=== PATIENT | female | born 1945 | race Two or more races ===

== ENCOUNTER 2024-11-25 12:14 | Emergency (ER) | payer OTHER, SELFPAY ==
[2024-11-25] VITALS (8 sets, daily range): BP systolic 105–131; BP diastolic 57–87; PULSE 60–90; RESP 13–97; TEMP 37; O2SAT 61–98
--- NOTE | 2024-11-25 12:15 | PC.NURSE ---
[facility] ARRIVAL EVALUATED PT. PT TAKEN STRAIGHT TO CT FOR STROKE ALERT
--- NOTE | 2024-11-25 12:15 | PD.EDNEURO ---
Neuro Symptoms Deficit-RME/HPI General Chief Complaint: Neuro Symptoms/Deficit Stated Complaint: STROKE Time Seen by Provider: 11/25/24 12:27 Arrival date/time: 11/25/24 12:14 RME / HPI RME / HPI Narrative: DR. JOLLY MAIN ED EVALUATION: 79 year old female with past medical history significant for atrial fibrillation [facility]umping [facility] in [facility] at [facility]130[facility]. Last known well at 10am when she arrived at [facility] with her son. Patient is supposed to be on Eliquis for atrial fibrillation, however she ran out a month ago and did not refill. History obtained from EMS and patient son. EMS noted right-sided weakness and right-sided facial droop. Related Data Previous Rx's ?Medication ?Instructions ?Recorded albuterol sulfate 90 mcg/actuation 2 puff inhalation QID PRN 02/26/20 aerosol inhaler shortness of breath or wheezing #18 grams azithromycin 250 mg tablet See Rx Instructions PO .COMPLEX #6 02/26/20 tabs Allergies Allergy/AdvReac Type Severity Reaction Status Date / Time No Known Drug Allergies Allergy Verified 07/30/22 12:20 Review of Systems Review of Systems Systems Reviewed: All systems reviewed, normal except as documented Past Medical History Past Medical History CARDIAC: Positive Cardiac Disorders and Hypertension MUSCULOSKELETAL: Positive Musculoskeletal Disorders and Arthritis Surgical History SURGICAL: Positive Section (x2) Social History SMOKING STATUS: Never smoker SUBSTANCE USE: does not use ALCOHOL: Never ED Exam Narrative Physical exam: GENERAL APPEARANCE: alert and oriented x 4, well-developed, well-nourished VITALS: All vitals were reviewed and the pulse ox is 94% on room air, which is normal according to my interpretation. HEENT: Normocephalic, atraumatic; pupils equal, round, reactive to light; EOMI; mucous membranes pink, moist; oropharynx clear NECK: Supple LUNGS: CTABL; no wheezes, no rales, no rhonchi HEART: Regular rate, regular rhythm; normal S1, S2; no murmurs ABDOMEN: non distended; normal BS; soft, no tenderness, no guarding, no rebound; no masses, no organomegaly, no hernia BACK: no CVA tenderness EXTREMITIES: atraumatic; no edema NEUROLOGIC: awake; alert and oriented x4; right sided facial droop, right sided weakness PSYCHIATRIC: appropriate mood and affect SKIN: warm, dry, normal color; no rashes Course Quality Measures none Orders Category Date Time Status Bedside Blood Glucose NOW Care 11/25/24 12:23 Completed Oil Mixer NOW Care 11/25/24 12:23 Completed Continuous Pulse Oximetry NOW Care 11/25/24 12:23 Completed EKG (ED ONLY) *Do not use* NOW Care 11/25/24 12:23 Completed In and Out Catheter NEEDED Care 11/25/24 12:23 Completed Insert IV NOW Care 11/25/24 12:23 Completed NIH Stroke Scale Q4HX8,QSHIFT Care 11/25/24 12:58 Completed NIH Stroke Scale now Care 11/25/24 12:23 Completed NPO NOW Care 11/25/24 12:23 Completed Neuro Check Q15M Care 11/25/24 12:58 Completed Nurse Swallow Screen x1 Care 11/25/24 12:23 Completed Vital Signs Q15M Care 11/25/24 12:58 Completed Consult to Neurology / Tele-Neurology Routine Cons 11/25/24 12:23 Active Referral - Contact Acid Plant Operator Helper Stat Cons 11/25/24 13:[address] angio stroke protocol Stat Exams 11/25/24 12:[address] stroke protocol Stat Exams 11/25/24 12:20 Completed EKG (ED Only) Stat Exams 11/25/24 12:23 Draft Alcohol, Blood Medical Stat Lab 11/25/24 12:40 Completed CBC Stat Lab 11/25/24 12:40 Completed Comprehensive Metabolic Panel Stat Lab 11/25/24 12:40 Completed Magnesium Stat Lab 11/25/24 12:40 Completed Partial Thromboplastin Time Stat Lab 11/25/24 12:40 Completed Prothrombin Time with INR Stat Lab 11/25/24 12:40 Completed Troponin I Stat Lab 11/25/24 12:40 Completed Labetalol IV [Trandate IV] Med 11/25/24 12:43 Discontinued 10 mg IVP PRNMRX1 PRN Labetalol IV [Trandate IV] Med 11/25/24 12:43 Discontinued 10 mg IVP PRNMRX1 PRN Nicardipine/Ns 20Mg Ivpb [Cardene Ivpb] Med 11/25/24 12:43 Discontinued 20 mg in 200 ml IV 5 mg/hr Ondansetron Inj [Zofran Inj] Med 11/25/24 12:23 Discontinued 4 mg IV Q4HR PRN Tenecteplase Inj [TNKase Inj] Med 11/25/24 12:43 Discontinued 17.6 mg IV X1 ONE Oxygen Delivery NOW RT 11/25/24 12:23 Completed Vital Signs Vital signs: Vital Signs Respiratory Rate 13 11/25/24 12:58 Blood Pressure 127/76 11/25/24 12:58 Pulse Oximetry (%) 94 L 11/25/24 12:58 Oxygen Delivery Method Room Air 11/25/24 12:58 Neuro Symptoms / Deficit MDM Narrative MDM Narrative:: Salma Mahoney am scribing for and in the presence of Dr. Jolly. Patient data External records reviewed:: EMS form Clinical information provided by:: patient and EMS Social determinants that could affect healthcare access:: none Patient has the following chronic illnesses:: hypertension, arthritis, and x2 section How is presenting disease/condition affected by chronic disease/condition?: exacerbated by Evaluation data The following diagnostics were reviewed and interpreted by me:: lab results, radiology exam(s) and EKG tracing(s) (vEKG#1: EKG at 1306 hours. Interpreted by me: sinus rhythm, rate 61, right bundle branch block) Lab and/or radiology exams considered but not ordered:: none Interpretation Summary: Procedure(s): CT stroke protocol Accession Number(s): [id number] cc: Matthew Bonner MD; Miryam Jolly MD~ Examination: CT brain head without contrast. 2-D sagittal coronal reconstructions Date and time of exam:November 25, 2024 at 1219 hours Comparison July 30, 2022 INDICATIONS: Stroke alert, onset focal neurologic deficit, onset right-sided body weakness beginning one hour ago CTDI: vol (mGy):45.7 DLP: (mGycm):941 Technique: Multiple CT axial sections of the brain have been obtained, 5 mm slice thickness. Contrast has not been administered. 2-D sagittal, coronal reconstructions have been obtained Low dose protocols were performed. One or more of the following dose reduction techniques were used; automated exposure control, adjustment of the mA and/or KV according to patient size, use of iterative reconstruction technique. Findings: No significant ventricular enlargement. Intra-axial or extra-axial hemorrhage density is not seen. No mass effect or midline shift Basal cisterns are not remarkable. Fourth ventricle is midline. Cranial vault intact. Retention cyst right sphenoid air cells Impression: Negative for acute hemorrhage, mass effect or midline shift Dictated By: Matthew Bonner MD Procedure(s): CT angio stroke protocol Accession Number(s): [id number] cc: Matthew Bonner MD; Miryam Jolly MD~ Examination: CTA carotids with intravenous contrast CTA brain, head with intravenous contrast. 2-D sagittal, coronal reconstructions. 3-D reconstructions. Exam date and time: November 25, 2024 at 1224 hours INDICATIONS: Stroke alert today, onset focal neurologic deficit, right-sided body weakness beginning one hour ago CTDI: vol (mGy) 34.9 DLP: (mGycm) 429 Technique: Multiple CTA axial brain, head carotid images post intravenous contrast injection 75 cc, Isovue-370. 2-D sagittal, coronal reconstructions. 3-D reconstructions, 3-D post processing including vascular maximum intensity projection images. Low dose protocols were performed. One or more of the following dose reduction techniques were used; automated exposure control, adjustment of the mA and/or KV according to patient size, use of iterative reconstruction technique. Findings: Multiple left thyroid lobe calcifications and 8mm left thyroid nodule No common carotid carotid bifurcation or internal carotid artery significant stenoses Dominant left vertebral artery with no critical stenoses Attenuated basilar artery Juxtasellar supraclinoid portions internal carotid arteries intact Occlusion M1 segment left middle cerebral artery, no filling of left middle cerebral artery branches Critical stenosis left posterior cerebral artery junction P1 and P2 segments IMPRESSION: No significant neck arterial stenoses Occlusion M1 segment left middle cerebral artery with no significant filling of middle cerebral artery trifurcation vessels on the left Critical stenosis left posterior cerebral artery junction P1 and P2 segments Dictated By: Matthew Bonner MD Medications / Prescriptions Medications or Prescriptions considered but not ordered:: none Medication administrations:: Medication Administration History Discontinued Medications Nicardipine/Sodium Chloride (Cardene Ivpb) 20 mg in 200 mls @ 50 mls/hr IV .Q4H PRN; Protocol PRN Reason: Per Nicardipine Stroke Protocol Stop: 12/25/24 12:42 Labetalol HCl (Labetalol Inj 5 Mg/Ml Vial 20 Ml) 10 mg IVP PRNMRX1 PRN PRN Reason: SBP > 185 mmHg and/or DBP > 110 Labetalol HCl (Labetalol Inj 5 Mg/Ml Vial 20 Ml) 10 mg IVP PRNMRX1 PRN PRN Reason: SBP > 180 mmHg or DBP > 105 Ondansetron HCl (Ondansetron Inj 2 Mg/Ml Inj 2 Ml) 4 mg IV Q4HR PRN PRN Reason: NAUSEA OR VOMITING Stop: 12/25/24 12:22 Tenecteplase (Tenecteplase Inj 50 Mg Vial) 17.6 mg 0.25 mg/kg (17.6 mg) IV X1 ONE Stop: 11/25/24 12:44 Last Admin: 11/25/24 12:53 Dose: 17.6 mg Documented By: TM Co-signed By: km see above Consultations Consultation(s) initiated? (list below): Yes Consultation #1 (Physician, Specialty, Details): Discussed test HPI, PMHx, lab, radiology results and/or management with Dr. Kang Brantley from [facility]. Will accept the patient for transfer. Time: 13:40 Consultation #2 (Physician, Specialty, Details): Discussed test HPI, PMHx, lab, radiology results and/or management with Dr. He, neurologist from [facility]. Following recommendations and they plan for a thrombectomy. Time: 14:02 Diagnosis Neuro Differential Diagnosis: subarachnoid hemorrhage, cerebrovascular accident and transient cerebral ischemia Most likely diagnosis given after review of the tests above:: CVA Occlusion of middle cerebral artery Admission Indicated Admission indicated?: not indicated Explain why admission is indicated or not indicated:: Patient needs higher level of care and will be transferred. Admission Request Was there a request for admission?: No Disposition Plan Disposition Plan: Transfer Critical Care Time Critical Care Time Critical Care Time: Yes Total Critical Care Time (min.): 45 Attestation: The high probability of sudden, clinically significant deterioration in the patient?s condition required the highest level of my preparedness to intervene urgently. The services I provided to this patient were to treat and/or prevent clinically significant deterioration. Services included the following: chart data review, reviewing nursing notes and/or old charts, documentation time, sr solutions consultant collaboration regarding findings and treatment options, medication orders and management, direct patient care, vital sign assessments and ordering, interpreting and reviewing diagnostic studies and lab tests. Aggregate critical care time includes only time during which I was engaged in work directly related to the patient?s care, as described above, whether at bedside or elsewhere in the Emergency Department. It did not include time spent performing other reported procedures or the services of residents, students, nurses or physician assistants. Discharge Plan Plan Patient Disposition: [facility] Pt Being Transferred to: [facility] Service Needed for Transfer: Interventional Radiology Prescriptions/Referrals Prescriptions/Med Rec: No Action albuterol sulfate 90 mcg/actuation HFA aerosol inhaler 2 puff IH QID PRN (Reason: shortness of breath or wheezing) Qty: 18 0RF azithromycin 250 mg tablet See Rx Instructions .ROUTE .COMPLEX Qty: 6 0RF Rx Instructions: take 500 mg today (day 1), then 250 mg for 4 days (days 2-5) Problem List Clinical Impression: Cerebrovascular accident, Occlusion of middle cerebral artery Patient/Caregiver Discharge Instructions Print Language: New Zealander Stand Alone Forms: Lashawn Award Info., Patient Portal Info Letter
--- NOTE | 2024-11-25 12:20 | XR_ITS ---
Examination: CTA carotids with intravenous contrast CTA brain, head with intravenous contrast. 2-D sagittal, coronal reconstructions. 3-D reconstructions. Exam date and time: November 25, 2024 at 1224 hours INDICATIONS: Stroke alert today, onset focal neurologic deficit, right-sided body weakness beginning one hour ago CTDI: vol (mGy) 34.9 DLP: (mGycm) 429 Technique: Multiple CTA axial brain, head carotid images post intravenous contrast injection 75 cc, Isovue-370. 2-D sagittal, coronal reconstructions. 3-D reconstructions, 3-D post processing including vascular maximum intensity projection images. Low dose protocols were performed. One or more of the following dose reduction techniques were used; automated exposure control, adjustment of the mA and/or KV according to patient size, use of iterative reconstruction technique. Findings: Multiple left thyroid lobe calcifications and 8mm left thyroid nodule No common carotid carotid bifurcation or internal carotid artery significant stenoses Dominant left vertebral artery with no critical stenoses Attenuated basilar artery Juxtasellar supraclinoid portions internal carotid arteries intact Occlusion M1 segment left middle cerebral artery, no filling of left middle cerebral artery branches Critical stenosis left posterior cerebral artery junction P1 and P2 segments IMPRESSION: No significant neck arterial stenoses Occlusion M1 segment left middle cerebral artery with no significant filling of middle cerebral artery trifurcation vessels on the left Critical stenosis left posterior cerebral artery junction P1 and P2 segments
--- NOTE | 2024-11-25 12:20 | XR_ITS ---
Examination: CT brain head without contrast. 2-D sagittal coronal reconstructions Date and time of exam:November 25, 2024 at 1219 hours Comparison July 30, 2022 INDICATIONS: Stroke alert, onset focal neurologic deficit, onset right-sided body weakness beginning one hour ago CTDI: vol (mGy):45.7 DLP: (mGycm):941 Technique: Multiple CT axial sections of the brain have been obtained, 5 mm slice thickness. Contrast has not been administered. 2-D sagittal, coronal reconstructions have been obtained Low dose protocols were performed. One or more of the following dose reduction techniques were used; automated exposure control, adjustment of the mA and/or KV according to patient size, use of iterative reconstruction technique. Findings: No significant ventricular enlargement. Intra-axial or extra-axial hemorrhage density is not seen. No mass effect or midline shift Basal cisterns are not remarkable. Fourth ventricle is midline. Cranial vault intact. Retention cyst right sphenoid air cells Impression: Negative for acute hemorrhage, mass effect or midline shift
--- NOTE | 2024-11-25 12:23 | EKG_ITS ---
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
[2024-11-25 12:44] LABS: Basophils % (Auto) 1 % (0-2.5); Eosinophils % (Auto) 1 % (0-10); Hematocrit 37.7 % (36.0-46.0); Hemoglobin 12.8 g/dL (12.0-16.0); Immature Granulocytes % (Auto) 0 % (0-0); Immature Granulocytes Auto 0.01 Thou/mm3 (0.00-0.00); Lymphocytes # (Auto) 1.2 Thou/mm3 (1.0-4.8); Lymphocytes % (Auto) 18 % (10-50); Mean Corpuscular Hemoglobin 29.6 pg (25.0-35.0); Mean Corpuscular Volume 87 fL (80-100); Monocytes # (Auto) 0.5 Thou/mm3 (0.0-0.8); Monocytes % (Auto) 8 % (0-12); Neutrophils # (Auto) 4.8 Thou/mm3 (1.8-7.7); Neutrophils % (Auto) 73 % (37-80); Nucleated Red Blood Cell % 0 /100 WBC (0); Platelet Count 255 Thou/mm3 (140-440); RDW Standard Deviation 45.8 fL (36.4-46.3); Red Blood Count 4.33 Miln/mm3 (4.00-5.20); White Blood Count 6.5 Thou/mm3 (3.6-11.0)
[2024-11-25] MEDS: TENECTEPLASE INJ 50 MG VIAL 17.6 MG IV (12:53)
[2024-11-25 12:58] LABS: INR 1.1 (0.9-1.3); Partial Thromboplastin Time 26.8 Seconds (22.0-36.0); Prothrombin Time 12.4 Seconds (9.0-12.2)
--- NOTE | 2024-11-25 13:04 | ESCONSULT_ITS ---
Tele Neuro Consultation Consultation Date 11/25/24 Laboratory-Coagulation Panel PT 12.4 Seconds (9.0-12.2) H 11/25/24 12:40 INR 1.1 (0.9-1.3) 11/25/24 12:40 APTT 26.8 Seconds (22.0-36.0) 11/25/24 12:40 Consultation Narrative [facility] Tele[facility]urology Consult Services Patient Name:???Willa Mg Date of :???1945 Identification Number:??? Date of Service:???11/25/2024 12:11:06 Diagnosis:?I63.312 - Cerebrovascular accident (CVA) due to thrombosis of left middle cerebral artery (HCCC) Impression: ?Acute onset of aphasia, right facial droop, and right hemiparesis due to left M1 occlusion in the setting of atrial fibrillation not on anticoagulation for the past month. ? ?All indications/contraindications reviewed with the patient's sons; patient meets criteria for IV thrombolysis. The risks, benefits, and alternatives were discussed, including the risk of disabling or fatal intracranial or systemic bleeding complications. The potential benefits outweigh the risks, and IV thrombolysis was recommended and administered. ?CTA head shows a left M1 occlusion; recommend transfer to a facility with neurointerventional capabilities for endovascular thrombectomy. Pending transfer recommend keeping head of bed as flat as tolerated to facilitate collateral perfusion. Our recommendations are outlined below. Recommendations: IV Tenecteplase recommended. I confirmed the following. (Patient name, , MRN, Blood Pressure, dose of Thrombolytic and waste, weight completed by stretcher/scale not stated weight, have ED staff inform ED MD of thrombolytic decision) Thrombolytic bolus given Without Complication. IV Tenecteplase Total Dose ? 17.6 mg Routine post Thrombolytic monitoring including neuro checks and blood pressure control during/after treatment Monitor blood pressure Check blood pressure and neuro assessment every 15 min for 2 h, then every 30 min for 6 h, and finally every hour for 16 h. Manage Blood Pressure per post Thrombolytic protocol. ? Follow designated hospital protocol for admission and post thrombolytic care ? CT brain 24 hours post Thrombolytic ? NPO until swallowing screen performed and passed ? No antiplatelet agents or anticoagulants (including heparin for DVT prophylaxis) in first 24 hours ? No Roblero catheter, nasogastric tube, arterial catheter or central venous catheter for 24 hr, unless absolutely necessary ? Telemetry ? Bedside swallow evaluation ? HOB less than 30 degrees ? Euglycemia ? Avoid hyperthermia, PRN acetaminophen ? DVT prophylaxis ? Inpatient Neurology Consultation ? Stroke evaluation as per inpatient neurology recommendations Discussed with ED physician Advanced Imaging: CTA Head and Neck Completed. LVO:Yes Discussed with [facility] :No, Dr. Jolly to call [facility] for transfer for thrombectomy per facility protocol Metrics: Last Known Well: 11/25/2024 10:00:00 Dispatch Time: 11/25/2024 12:11:06 Arrival Time: 11/25/2024 12:14:00 Initial Response Time: 11/25/2024 12:13:56Symptoms: right sided weakness, aphasia. Initial patient interaction: 11/25/2024 12:23:32 NIHSS Assessment Completed: 11/25/2024 12:28:39Patient is a candidate for Thrombolytic. Thrombolytic Medical Decision: 11/25/2024 12:43:16 Needle Time: 11/25/2024 12:53:56Weight Noted by Staff: 70.4 kg I personally Reviewed the CT Head and it Showed no acute hemorrhage Primary Provider Notified of Diagnostic Impression and Management Plan on: 11/25/2024 12:57:42 Extended thrombolytic management related to: ?? Awaiting on history by family on potential contraindications Thrombolytic Contraindications: Last Known Well > 4.5 hours:?No CT Head showing hemorrhage:?No Ischemic stroke within 3 months:?No Severe head trauma within 3 months:?No Intracranial/intraspinal surgery within 3 months:?No History of intracranial hemorrhage:?No Symptoms and signs consistent with an SAH:?No GI malignancy or GI bleed within 21 days:?No Coagulopathy: Platelets <100 000 /mm3, INR >1.7, aPTT>40 s, or PT >15 s:?No Treatment dose of LMWH within the previous 24 hrs:?No Use of NOACs in past 48 hours:?No Glycoprotein IIb/IIIa receptor inhibitors use:?No Symptoms consistent with infective endocarditis:?No Suspected aortic arch dissection:?No Intra-axial intracranial neoplasm:?No Thrombolytic Decision and Management Plan: Management with thrombolytic treatment was explained to the Family as was risks and benefits and alternatives to the treatment. Patient agrees with the decision to proceed with thrombolytic treatment. . All questions were answered and the Family expressed understanding of the treatment plan. History of Present Illness:Patient is a 79 year old Female. Patient was brought by EMS for symptoms of right sided weakness, aphasia. Patient is an 79 year old woman with past medical history of atrial fibrillation, who was in jew[place] with her son at 11:30am when she slumped over and developed right facial droop and stopped speaking. She sat down for the service at 10am. On ED arrival she had severe aphasia, right facial droop, and right hemiparesis. Discussed with her sons at bedside and via telephone. She had been taking Eliquis and metoprolol but ran out about a month ago and is not on any prescription medications at this time. I have confirmed with them that there is no history of stroke in the last 3 months. There is no prior history of intracerebral hemorrhage, subarachnoid hemorrhage, subdural hemorrhage, or significant head trauma. There is no history of intraparenchymal neoplasm. No surgeries or procedures in the past 3 months. No history of GI or bleeding in the past 21 days. The patient is not taking any anticoagulants, and there is no history of bleeding diathesis. Past Medical History: ?Atrial Fibrillation ?There is no history of Hypertension ?There is no history of Diabetes Mellitus ?There is no history of Hyperlipidemia ?There is no history of Coronary Artery Disease ?There is no history of Stroke Medications: No Anticoagulant use? No Antiplatelet use Reviewed EMR for current medications Other Medications Pertinent To Assessment Include: Supposed to be on Eliquis and metoprolol but ran out one month ago Allergies:? NKDA Social History: Unable To Obtain Due To Patient Status :?Patient Cannot Communicate Relevant Social History Family History: There is no family history of premature cerebrovascular disease pertinent to this consultation ROS : 14 Points Review of Systems was performed and was negative except mentioned in HPI. Past Surgical History: There Is No Surgical History Contributory To Today?s Visit Examination: BP(127/88),?Pulse(61),?Blood Glucose(96) 1A: Level of Consciousness - Alert; keenly responsive?+ 0 1B: Ask Month and Age - Aphasic?+ 2 1C: Blink Eyes & Squeeze Hands - Performs 0 Tasks?+ 2 2: Test Horizontal Extraocular Movements - Partial Gaze Palsy: Can Be Overcome?+ 1 3: Test Visual Sofia - Complete Hemianopia?+ 2 4: Test Facial Palsy (Use Grimace if Obtunded) - Partial paralysis (lower face)? + 2 5A: Test Left Arm Motor Drift - No Drift for 10 Seconds?+ 0 5B: Test Right Arm Motor Drift - Some Effort Against [place]?+ 2 6A: Test Left Leg Motor Drift - Some Effort Against [place]?+ 2 6B: Test Right Leg Motor Drift - Some Effort Against [place]?+ 2 7: Test Limb Ataxia (FNF/Heel-Gamble) - Does Not Understand?+ 0 8: Test Sensation - Normal; No sensory loss?+ 0 9: Test Language/Aphasia - Mute/Global Aphasia: No Usable Speech/Auditory Comprehension?+ 3 10: Test Dysarthria - Mute/Anarthric?+ 2 11: Test Extinction/Inattention - No abnormality?+ 0 NIHSS Score:?20 Pre-Morbid Modified Ronald Scale:2 Points = Slight disability; unable to carry out all previous activities, but able to look after own affairs without assistan ce Spoke with :?Dr. Jolly This consult was conducted in real time using interactive audio and video technology. Patient was informed of the technology being used for this visit and agreed to proceed. Patient located in hospital and provider located at home/office setting. Patient is being evaluated for possible acute neurologic impairment and high probability of imminent or life-threatening deterioration. I spent total of 50 minutes providing care to this patient, including time for face to face visit via telemedicine, review of medical records, imaging studies and discussion of findings with providers, the patient and/or family. Dr Aga Worley [facility] For Inpatient follow-up with [facility] physician please call [facility] at . As we are not an outpatient service for any post hospital discharge needs please contact the hospital for assistance. If you have any questions for the [facility] physicians or need to reconsult for clinical or diagnostic changes please contact us via [facility] at .
[2024-11-25 13:07] LABS: Alanine Aminotransferase 14 U/L (10-49); Albumin, Serum 3.5 gm/dL (3.4-4.8); Albumin/Globulin Ratio 1.6 (1.2-2.2); Alcohol, Blood Medical < 3.0 mg/dL (0-10.0); Alkaline Phosphatase 61 U/L (46-116); Anion Gap 8 (7-16); Aspartate Amino Transferase 27 U/L (0-34); BUN/Creatinine Ratio 10 Ratio (12-20); Bilirubin,Total 1.1 mg/dL (0.3-1.2); Blood Urea Nitrogen 13 mg/dL (9-23); Calcium 8.5 mg/dL (8.3-10.6); Calcium (Corrected) 8.9 mg/dL (8.5-10.1); Chloride 105 mMol/L (98-107); Creatinine (Component) 1.3 mg/dL (0.6-1.3); Globulin 2.2 gm/dL (2.3-3.5); Glucose 94 mg/dL (74-106); Osmolality,Calculated 275 (275-295); Potassium 4.1 mMol/L (3.4-5.1); Sodium 138 mMol/L (136-145); Total Protein 5.7 gm/dL (5.7-8.2); Troponin I 0.024 ng/mL (0.0-0.045); eGFR 41 See Note
--- NOTE | 2024-11-25 13:14 | PC.CM ---
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 I updated [facility]. I faxed paperwork to [facility]. Addendum entered by Neris Hudson RN 11/25/24 13:33: 1325 Patient has been accepted by [facility] and she will be going to the ED. Number for report [phone]. Dr. Kang Velasquez accepted. I called [facility] and they will be eloina at 1400. I will take paperwork to ED to complete transfer packet. Original Note: [id number] I received a referral to transfer patient for neurosurgery for thrombectomy. I contacted [facility] and initiated transfer. I faxed over paperwork and I will push over images. I will start packet.
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
== END 2024-11-25 14:10 | disposition short-term general hospital (02) ==
LOC: SERX 13:36
PROVIDERS: Emergency Provider Emergency Medicine
DX: I63.512 Cerebral infarction due to unspecified occlusion or stenosis of left middle cerebral artery (principal); I63.532 Cerebral infarction due to unspecified occlusion or stenosis of left posterior cerebral artery; G81.91 Hemiplegia, unspecified affecting right dominant side; R29.810 Facial weakness; R29.720 NIHSS score 20; I45.10 Unspecified right bundle-branch block; I10 Essential (primary) hypertension; I48.91 Unspecified atrial fibrillation; Z79.01 Long term (current) use of anticoagulants; Z75.1 Person awaiting admission to adequate facility elsewhere
CPT/HCPCS: 36415; 70450; 70496; 70498; 80053; 80307; 80320; 81001; 83735; 84484; 85025; 85610; 85730; 87086; 93005; 99291; A4649; J3101; Q9967; G0480